=== PATIENT | female | born 1990 | race Caucasian/White ===

== ENCOUNTER 2016-06-20 11:16 | Emergency (ER) | payer MEDICAID ==
--- NOTE | 2016-06-20 11:36 | Emergency Department Record ---
History of Present Illness - General Chief Complaint: Cough Stated Complaint: COUGH Time Seen by Provider: 06/20/16 11:25 Source: Patient Mode of Arrival: Ambulatory Limitations: No limitations - History of Present Illness Initial Comments: 25 yo female presents with a cough. She has been coughing for about 1.5 weeks. The cough is loosely productive at this point in time. The cough started soon after getting guinea pigs and she has some concern about allergies. She has a prescription for singulair but she has not filled it. No fever. She denies any history of asthma. MD Complaint: Cough Onset/Timin -: Days(s) Severity: Moderate Severity scale (1-10): 5 Consistency: Constant Context: Sick contacts (child with cough) Associated Symptoms: Cough - Related Data Home Medications Medication Instructions Recorded Confirmed Last Taken Levothyroxine Sodium [Synthroid] 25 mcg PO DAILY 12/22/13 06/20/16 1 Day Ago Venlafaxine HCl [Effexor Xr] 150 mg PO DAILY 08/18/14 06/20/16 1 Day Ago Buspirone HCl [Buspar] 10 mg PO BID 12/21/15 06/20/16 1 Day Ago Previous Rx's Medication Instructions Recorded Prednisone [Prednisone 20Mg] 20 mg PO BID #10 tab 06/20/16 Allergies Allergy/AdvReac Type Severity Reaction Status Date / Time ondansetron HCl [From Zofran] Allergy Intermediate CHEST PAIN Verified 06/20/16 11:25 phentermine AdvReac Intermediate CHEST PAIN Verified 06/20/16 11:25 Travel Screening - Travel/Exposure Within Last 30 Days Have you traveled within the last 30 days?: No - Travel/Exposure Within Last Year Have you traveled outside the [place] in the last year?: No - Additonal Travel Details Have you been exposed to anyone with a communicable illness?: No - Travel Symptoms Symptom Screening: None Review of Systems Constitutional: Denies: Chills, Fever, Malaise, Weakness Eyes: Denies: Eye discharge ENT: Reports: Congestion Respiratory: Reports: Cough, Dyspnea. Denies: Hemoptysis, Stridor, Wheezes Cardiovascular: Denies: Chest pain, Palpitations, Syncope Endocrine: Denies: Fatigue Gastrointestinal: Denies: Abdominal pain, Diarrhea, Nausea, Vomiting Genitourinary: Denies: Dysuria, Urgency Musculoskeletal: Denies: Arthralgia, Back pain, Myalgia Skin: Denies: Bruising, Change in color, Rash Neurological: Denies: Confusion, Headache Psychiatric: Denies: Anxiety Hematological/Lymphatic: Denies: Blood Clots, Easy bleeding, Easy bruising, Swollen glands Past Medical History - SOCIAL HISTORY Smoking Status: Never smoker Alcohol Use: None Drug Use: None - RESPIRATORY Hx Respiratory Disorders: No - CARDIOVASCULAR Hx Irregular Heartbeat: Yes - NEURO Hx Neuro Disorders: No - GI Hx GI Disorders: No - Hx Genitourinary Disorders: No - ENDOCRINE Hx Endocrine Disorders: Yes Hx Thyroid Disease: Yes (low) - MUSCULOSKELETAL Hx Musculoskeletal Disorders: Yes Comment:: back pain, sciatic problems - PSYCH Hx Psych Problems: Yes Hx Anxiety: Yes Hx Depression: Yes - HEMATOLOGY/ONCOLOGY Hx Hematology/Oncology Disorders: No Family Medical History Any Significant Family History?: Yes Hx Cancer: Grandparents Hx Depression: Mother Hx Diabetes: Grandparents Hx HTN: Grandparents Physical Exam - General General Appearance: Alert, Oriented x3, Cooperative, No acute distress Limitations: No limitations - Head Head exam: Normal inspection - Eye Eye exam: Normal appearance, PERRL. negative: Conjunctival injection - ENT ENT exam: Normal exam Ear exam: Normal external inspection Nasal Exam: Normal inspection Mouth exam: Normal external inspection Teeth exam: Normal inspection Throat exam: Normal inspection - Neck Neck exam: Normal inspection - Respiratory Respiratory exam: Normal lung sounds bilaterally. negative: Prolonged expiratory, Respiratory distress, Stridor, Wheezes - Cardiovascular Cardiovascular Exam: Regular rate, Normal rhythm, Normal heart sounds Peripheral Pulses: 2+: Radial (R), Radial (L) - GI/Abdominal GI/Abdominal exam: Soft - Rectal Rectal exam: Deferred - exam: Deferred - Extremities Extremities exam: Normal inspection, Full ROM, Normal capillary refill. negative: Pedal edema, Tenderness - Back Back exam: Reports: Normal inspection, Full ROM. Denies: Muscle spasm, Rash noted, Tenderness - Neurological Neurological exam: Alert, Normal gait, Oriented X3 - Psychiatric Psychiatric exam: Normal affect, Normal mood. negative: Agitated, Anxious - Skin Skin exam: Dry, Intact, Normal color, Warm. negative: Cyanosis, Diaphoretic, Erythema Course Vital Signs 06/20/16 11:19 Temperature 98.4 F Pulse Rate 87 Respiratory 20 Rate Blood Pressure 115/94 Pulse Ox 96 - Reevaluation(s) Reevaluation #1: Vitals reviewed No acute changes 06/20/16 11:40 Reevaluation #2: The symptoms are likely viral or allergic in nature no obvious indication for antibiotics at this time 06/20/16 11:41 Reevaluation #3: Influenza is negative 06/20/16 12:11 Disposition Disposition: Discharge Clinical Impression: Bronchitis Disposition: Home, Self-Care Condition: (1) Good Instructions: Acute Bronchitis (ED) Additional Instructions: Call your doctor for close follow up Return if worse or any new concerns Prescriptions: Prednisone [Prednisone 20Mg] 20 mg PO BID #10 tab Forms: Patient Portal Access Time of Disposition: 11:40
[2016-06-20 12:05] LABS: INFLUENZA A NEGATIVE (NEGATIVE); INFLUENZA B NEGATIVE (NEGATIVE)
== END 2016-06-20 12:20 | disposition home or self-care (01) ==
LOC: ER 11:16
DX: J20.9 Acute bronchitis, unspecified (principal)
CPT/HCPCS: 87400; 99282